=== PATIENT | male | born 1955 | race Caucasian/White ===

== ENCOUNTER → 2017-02-10 | Outpatient (CLI) | payer MEDICARE ==
[~2017-02-10] MED LIST: ADVAIR 500-501 EACH IH; ADVAIR HFA 230-28 GM INH; ALBUTEROL0.83 MG/ML IH; ALBUTEROL17 GM INH; ALLER-TEC10 MG PO; ALPRAZOLAM0.5 MG PO; AMLODIPINE BESY10 MG PO; ANTIVERT PO; ASPIRIN PO; ASPIRIN81 M2 PO; ATIVAN PO; BENADRYL25 MG PO; BIAXIN PO; COMBIVENT14.7 GM INH; COZAAR PO; COZAAR100 MG PO; DOXEPIN HCL25 MG PO; DOXEPIN HCL75 MG PO; DOXYCYCLINE HY100 M3 PO; FAMOTIDINE20 MG PO; FLEXERIL PO; FLOMAX0.4 M1; HEART MED; HYCODAN COUGH PO; HYDROCODON-ACE1 EAC1 PO; HYDROCODONE/APA1 T16 PO; HYTRIN2 M1 PO; IBUPROFEN PO; LEVEMIR100 U/ML SUBQ; LIPITOR PO; LISINOPRIL PO; LOPRESSOR PO; LORTAB 7.5-5001 TAB PO; LOSARTAN POTASS50 MG PO; MEDROL DOSEPAK4 MG PO; MEDROL PO; MEDROL4 MG/DOSE- PO; MOBIC15 MG PO; NITRO; NORVASC PO; PERCOCET; PERCOCET5/325 PO; PHENERGAN PO; PREDNISONE PO; PRILOSEC PO; PRILOSEC20 MG DOB; PRILOSEC20 MG PO; PULMICORT200 MCG/AE INH; TORADOL10 MG PO; ULTRAM PO; ZOFRANODT PO; ZOLOFT50 MG PO; ZYRTEC10 M2 PO
--- NOTE | ~2017-02-10 | US6 ---
[facility] A Service of [facility] RADIOLOGY TEXT RESULTS PATIENT: NELLIE LANGFORD LOCATION: [facility] : 57 UNIT #: [id number] AGE: [address]: Arpit Mcnamara MD SEX: M ORDER DR: [id number] [facility]. [place], [place] [address] [id number] O MR#: [id number] Acc #: [id number] NAME: NELLIE LANGFORD : 1955 SEX: M STUDY DATE/TIME: 02/10/2017 10:10 UNIT: CGUS ROOM: STUDY DESCRIPTION: US Abdominal Limited Attending Physician: Arpit Mcnamara M.D. Referring Physician: Arpit Mcnamara M.D. Ordering Physician: Arpit Mcnamara M.D. Primary Care Physician: Arpit Mcnamara M.D. MEDICAL IMAGING REPORT This report is preliminary unless electronic signature is present EXAM Right upper quadrant ultrasound. INDICATION Cirrhosis. Abdominal pain for 1 week. Hepatitis C. COMPARISON Abdominal ultrasound, 01/26/2016 FINDINGS The pancreas is poorly visualized due to overlying bowel gas. Visualized portions of the pancreatic head are within normal limits. There is coarsened echotexture throughout the hepatic parenchyma consistent with background cirrhosis. No hepatic mass. The intrahepatic bile ducts are normal in caliber. The common duct is normal in size at the shaheen hepatis measuring 0.5 cm. Gallbladder is surgically absent. The left kidney measures 11.0 cm. Renal cortical thickness and echogenicity is normal. No hydronephrosis. Patient has a known umbilical hernia. Evaluation of this area shows a 2.8 cm slightly heterogeneous area which is compatible with a abdominal hernia. This does appear to be fairly similar in size to the prior CT scan. IMPRESSION 1. Small umbilical hernia containing omental fat. 2. Cirrhosis of the liver. [facility] A Service [facility] RADIOLOGY TEXT RESULTS PATIENT: NELLIE LANGFORD LOCATION: [facility] : 57 UNIT #: [id number] AGE: [address]: Arpit Mcnamara MD SEX: M ORDER DR: Dictated by... Anup Aparicio M.D. THIS IS AN ELECTRONICALLY VERIFIED REPORT Anup Aparicio M.D. at 02/10/2017 4:16 PM ALEXEI/la TD: 02/10/2017 15:31 JOB #: [id number] MEDICAL IMAGING REPORT COPY
== END | disposition home or self-care (01) ==
LOC: CGUS 09:53
DX: K74.60 Unspecified cirrhosis of liver (principal); K42.9 Umbilical hernia without obstruction or gangrene
CPT/HCPCS: 76705